=== PATIENT | female | born 2000 | race Caucasian/White ===

== ENCOUNTER 2021-01-17 02:30 | Emergency (ER) | payer SELFPAY ==
[~2021-01-17] VITALS: Ht 147.3 cm; Wt 40.8 kg
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
--- NOTE | 2021-01-17 06:07 | NUR ---
Patient discharged to home in stable condition. Written and verbal after care instructions given. Patient verbalizes understanding of instruction.
[2021-01-17 06:11] VITALS: BP 123/79
== END 2021-01-17 06:11 | disposition home or self-care (01) ==
LOC: ER 02:34
DX: S00.03XA Contusion of scalp, initial encounter (principal); S09.8XXA Other specified injuries of head, initial encounter; V49.59XA Passenger injured in collision with other motor vehicles in traffic accident, initial encounter; Y93.89 Activity, other specified; Y92.413 State road as the place of occurrence of the external cause; Y99.8 Other external cause status
CPT/HCPCS: 70450-TC